=== PATIENT | female | born 2000 | race Caucasian/White ===

== ENCOUNTER 2019-07-13 22:56 | Emergency (ER) | payer OTHER ==
[2019-07-13 23:34] LABS: Urine Appearance Clear; Urine Bacteria Absent (Absent); Urine Bilirubin Negative (Negative); Urine Blood 2+ (Negative); Urine Color Straw; Urine Glucose Negative (Negative); Urine Ketones Negative (Negative); Urine Nitrite Negative (Negative); Urine Protein Negative (Negative); Urine Red Blood Cell Trace(0-2/hpf) (Absent); Urine Specific Gravity 1.002 (1.010-1.030); Urine Squamous Epithelial Cell Present (Absent); Urine Urobilinogen Negative (Negative); Urine White Blood Cell 1+(6-10/hpf) (Absent)
[2019-07-14] MEDS ORDERED: Ibuprofen TAB* 400 MG PO ONE (00:35)
[2019-07-14] MEDS ORDERED: Ketorolac INJ* 30 MG/ML 1 ML VIAL IV PUSH ONE (00:47)
[2019-07-14] MEDS ORDERED: Ondansetron INJ* 2 MG/ML VIAL IV ONE (00:47)
[2019-07-14] MEDS ORDERED: NS 0.9% 1000 ML** 1,000 ML IV ONE ×2 (00:47→02:01)
--- NOTE | 2019-07-14 00:47 | ED ---
GI/ HPI - HPI Summary HPI Summary: This pt is a 19 Y/O F presenting to [facility] with a CC of a Kidney infection that has been worsening today despite taking her ABx treatment. She states that she has had a worsening fever today of 103 F. She states that she has been taking Macrobid and has taken one use of the ABx. She also reports bilateral back pain that radiates down her legs along with a headache and nausea. She states that she has lower abdominal pain and rates her pain an 8/10 in severity. She states no aggravating or alleviating factors. She has no pertinent PMHx. - History of Current Complaint Chief Complaint: EDFever Time Seen by Provider: 07/14/19 00:30 Stated Complaint: FEVER PER PT Hx Obtained From: Patient Onset/Duration: Still Present, Worse Since - 07/13/19 in the AM Timing: Constant Severity: Severe Current Severity: Severe Pain Intensity: 8 Location of Pain: Diffuse - lower abdomen, Flank - bilateral, Other - back pain that radiates down her legs Associated Signs and Symptoms: Positive: Nausea, Fever - 103 F, Flank Pain - bilateral, Abdominal Pain - lower abdominal, UTI Symptoms, Other: - low back pain, radiated lower extremity pain Aggravating Factor(s): Nothing Alleviating Factor(s): Nothing - Allergy/Home Medications Allergies/Adverse Reactions: Allergies Allergy/AdvReac Type Severity Reaction Status Date / Time No Known Allergies Allergy Verified 07/13/19 23:08 PMH/Surg Hx/FS Hx/Imm Hx Previously Healthy: Yes Endocrine/Hematology History: Denies: Hx Diabetes Cardiovascular History: Denies: Hx Angina Respiratory History: Denies: Hx Asthma Infectious Disease History: No Infectious Disease History: Denies: Traveled Outside the [place] in Last 30 Days - Family History Known Family History: Positive: Other - Breat [place] - Social History Occupation: Employed Full-time Lives: With Family Alcohol Use: Weekly Hx Substance Use: Yes Substance Use Type: Reports: Marijuana Hx Tobacco Use: No Smoking Status (MU): Never Smoked Tobacco Household Exposure: No Review of Systems Positive: Fever - 103 F Positive: Abdominal Pain - Lower abdomen, Suprapubic , Nausea Positive: flank pain - bilateral Musculoskeletal: Other - radiated back pain, radiated lower extremity pain Positive: Headache All Other Systems Reviewed And Are Negative: Yes Physical Exam - Summary Physical Exam Summary: General: Well-developed, Mildly ill appearing No acute distress. HEENT: Normocephalic, Atraumatic. Eyes: Conjuctiva normal, PERRL. Ears: TMs within normal limits. Nares: (-) discharge, (-) erythema. Oropharynx: Clear, mucous membranes moist, (-) exudates. Neck: Soft, FROM, (-) lymphadenopathy, (-) thyromegaly, (-) JVD. Cardiovascular: Normal sinus rhythm, (-) murmur. Lungs: Clear to auscultation bilaterally (-) wheezes, (-) rales, (-) rhonchi. Abdomen: Soft, mild suprapubic tenderness with lower abdomen tenderness non- distended, (-) organomegaly, normal bowel sounds. Back: Mild CVA tenderness Extremities: No edema. Skin: Warm, dry, (-) rash. Neuro: Alert and oriented x3, no focal deficits. Psychiatric: Mood normal, affect normal. Triage Information Reviewed: Yes Vital Signs On Initial Exam: Initial Vitals Temp Pulse Resp BP Pulse Ox 100.1 F 123 18 133/88 98 07/13/19 23:09 07/13/19 23:09 07/13/19 23:09 07/13/19 23:09 07/13/19 23:09 Vital Signs Reviewed: Yes Procedures - Sedation Patient Received Moderate/Deep Sedation with Procedure: No Diagnostics - Vital Signs Vital Signs Temp Pulse Resp BP Pulse Ox 07/14/19 00:38 102.8 F 07/13/19 23:09 100.1 F 123 18 133/88 98 - Laboratory Lab Results: Lab Results 07/13/19 Range/Units 23:15 Urine Color Straw Urine Appearance Clear Urine pH 6.0 (5-9) Ur Specific [place] 1.002 L (1.010-1.030) Urine Protein Negative (Negative) Urine Ketones Negative (Negative) Urine Blood 2+ A (Negative) Urine Nitrate Negative (Negative) Urine Bilirubin Negative (Negative) Urine Urobilinogen Negative (Negative) Ur Leukocyte Esterase 1+ A (Negative) Urine WBC (Auto) 1+(6-10/hpf) A (Absent) Urine RBC (Auto) Trace(0-2/hpf) (Absent) Ur Squamous Epith Cells Present A (Absent) Urine Bacteria Absent (Absent) Urine Glucose Negative (Negative) Result Diagrams: 07/14/19 00:46 07/14/19 00:46 Lab Statement: Any lab studies that have been ordered have been reviewed, and results considered in the medical decision making process. - CT A/P CT CT Interpretation Completed By: Radiologist Summary of CT Findings: 1. There are wedge-shaped regions of decreased enhancement in the superior pole. of the right kidney and to a lesser extent the superior pole of the left kidney with mild perinephric fat stranding suspicious for acute pyelonephritis. 2. There is urinary bladder wall thickening suspicious for cystitis. ED physician has reviewed this report. GIGU Course/Dx - Course Course Of Treatment: 19-year-old female with recent diagnosis of UTI and started on Macrobid. Patient had increasing back pain and high fevers today. Patient's symptoms improved significantly with IV fluids and Toradol. CT demonstrates pyelonephritis. Patient given Rocephin in the emergency room. Started on Augmentin for 14 days. Advised increase fluid intake. Follow-up with PCP. Follow-up sooner for any worsening symptoms. - Diagnoses Provider Diagnoses: Acute pyelonephritis Discharge ED - Sign-Out/Discharge Documenting (check all that apply): Patient Departure - discharge - Discharge Plan Condition: Stable Disposition: HOME Prescriptions: Amoxicillin/Clavulanate TAB* [Augmentin TAB 875*] 875 mg PO BID 14 Days #28 tab Patient Education Materials: Kidney Infection (ED) Referrals: [facility] [Outside] - 2 Days Additional Instructions: PLEASE RETURN TO THE EMERGENCY DEPARTMENT FOR ANY NEW OR WORSENING SYMPTOMS. FOLLOW UP WITH [facility] TO BE SET UP WITH A PRIMARY CARE PHYSICIAN. You are being discharged home with a new script for 14 day treatment with Augmentin. Please stop taking your previous antibiotic Macrobid. - Billing Disposition and Condition Condition: STABLE Disposition: Home - Attestation Statements Document Initiated by Scribe: Yes Documenting Scribe: Natanael Hardin Provider For Whom Adi is Documenting (Include Credential): Mona Helton MD Scribe Attestation: Natanael Chavira, scribed for Mona Helton MD on 07/14/19 at 0530. Scribe Documentation Reviewed: Yes Provider Attestation: The documentation as recorded by the Natanael galaviz accurately reflects the service I personally performed and the decisions made by Mona weinstein MD Status of Scribe Document: Viewed
[2019-07-14 00:57] LABS: ABS Lymphocytes 0.8 10^3/ul (1.0-4.8); ABS Monocytes 1.2 10^3/ul (0-0.8); ABS Neutrophils 10.3 10^3/ul (1.5-7.7); Hematocrit 37 % (35-47); Hemoglobin 12.9 g/dL (12.0-16.0); Lymphocyte % 6.7 %; Mean Corpuscular HGB Conc 35 g/dL (31-36); Mean Corpuscular Hemoglobin 29 pg (27-31); Mean Corpuscular Volume 85 fL (80-97); Mean Platelet Volume 9.4 fL (7.4-10.4); Platelet Count 154 10^3/uL (150-450); Red Cell Distribution Width 12 % (10-15); White Blood Count 12.4 10^3/uL (3.5-10.8)
[2019-07-14 01:13] LABS: Albumin 4.3 g/dL (3.2-5.2); Albumin/Globulin Ratio 1.5 (1-3); BUN/Creatinine Ratio 5.7 (8-20); Calcium 9.4 mg/dL (8.6-10.3); EGFR African American 99.5 (>60); EGFR Non-African American 82.2 (>60); Globulin 2.8 g/dL (2-4); Potassium 3.4 mmol/L (3.5-5.0); Total Bilirubin 0.5 mg/dL (0.2-1.0); Total Protein 7.1 g/dL (6.4-8.9)
[2019-07-14] MEDS ORDERED: Iohexol 300* (CONTRAST) 10 ML SDV IV ONE (02:20)
[2019-07-14] MEDS ORDERED: cefTRIAXone(*) 2 GM in NS 0.9% 100 ML* 100 ML IVPB ONE (04:08)
[2019-07-14 04:29] VITALS: BP 119/71
== END 2019-07-14 04:01 | disposition home or self-care (01) ==
LOC: ED 22:56
DX: N10 Acute pyelonephritis (principal); R10.30 Lower abdominal pain, unspecified; M54.5 Low back pain; R50.9 Fever, unspecified; R11.0 Nausea
CPT/HCPCS: 36415; 74177; 80053; 81003; 81015; 83605; 85025; 87040; 87086; 96361; 96365; 96375; 99283; A9270-GY; J0696; J1885; J2405; Q9967